=== PATIENT | female | born 1995 ===

== ENCOUNTER 2024-01-21 05:08 | Inpatient (IN) | payer SELFPAY ==
[2024-01-21] MEDS ORDERED: Sodium Chloride 0.9% 2.5 ML Syringe FLUSH PRN (05:15)
[2024-01-21] MEDS ORDERED: Oxytocin/0.9 % Sodium Chloride 30 UNIT/500 ML BAG IV SCH (05:15)
[2024-01-21] MEDS ORDERED: Sodium Chloride 0.9% 10 ML Syringe FLUSH PRN (05:15)
[2024-01-21] MEDS ORDERED: Sodium Chloride 0.9% 20 ML SDV IV PRN (05:15)
[2024-01-21] MEDS: Lactated Ringers 1,000 ML IV SCH (05:44)
[2024-01-21 05:58] LABS: HEMATOCRIT 38.9 % (37.0-47.0); HEMOGLOBIN 13.4 g/dL (12.0-16.0); MEAN CORPUSCULAR HEMOGLOBIN 30.3 pg (28.0-32.0); MEAN CORPUSCULAR HGB CONC 34.4 g/dL (32.0-36.0); PLATELET COUNT,PLT 128 K/uL (150-400); RED BLOOD CELL COUNT 4.42 M/uL (4.10-5.30); WHITE BLOOD CELL COUNT,WBC 9.67 K/uL (3.9-11.3)
[2024-01-21] MEDS ORDERED: Ropivacaine 0.5% 5 MG/ML 30 ML SDV ONE (06:06)
[2024-01-21] MEDS ORDERED: droPERidol 5 MG/2 ML SDV ONE (06:07)
[2024-01-21] MEDS ORDERED: ceFAZolin 2 GM Vial ONE (06:07)
[2024-01-21] MEDS ORDERED: Oxytocin 10 Units/1 ML SDV ONE (06:07)
[2024-01-21] MEDS ORDERED: Tranexamic Acid 1,000 MG/10 ML Vial ONE (06:07)
[2024-01-21] MEDS ORDERED: ePHEDrine 50 MG/ML SDV ONE (06:07)
[2024-01-21] MEDS ORDERED: Dexamethasone 4 MG/ML 5 ML MDV ONE (06:07)
[2024-01-21] MEDS ORDERED: Calcium Chloride 10% 1 GM/10 ML Syringe ONE (06:07)
[2024-01-21] MEDS ORDERED: dexmedeTOMIDine HCl 200 MCG/2 ML SDV ONE (06:07)
[2024-01-21] MEDS ORDERED: Ondansetron 4 MG/2 ML SDV ONE (06:07)
[2024-01-21] MEDS ORDERED: Phenylephrine 1% 10 MG/ML SDV ONE (06:07)
[2024-01-21] MEDS ORDERED: Morphine PF 10 MG/10 ML SDV ONE (06:10)
[2024-01-21] MEDS ORDERED: fentaNYL 100 MCG/2 ML SDV ONE (06:10)
[2024-01-21] MEDS ORDERED: Water For Injection, Sterile 20 ML ONE (06:15)
[2024-01-21] MEDS ORDERED: Morphine 2 MG/ML SYRINGE IVPUSH PRN (07:15)
[2024-01-21] MEDS ORDERED: Ondansetron 4 MG/2 ML SDV IVPUSH PRN ×2 (07:15→08:12)
[2024-01-21] MEDS ORDERED: Metoclopramide 10 MG/2 ML SDV IVPUSH PRN (07:15)
[2024-01-21] MEDS ORDERED: fentaNYL 50 MCG/ML SDV IVPUSH PRN (07:15)
[2024-01-21] MEDS ORDERED: Naloxone 0.4 MG/ML SDV IVPUSH PRN (07:15)
[2024-01-21] MEDS ORDERED: HYDROmorphone 1 MG/ML Syringe IVPUSH PRN (07:15)
[2024-01-21] MEDS ORDERED: Albuterol 0.083% 2.5 MG/3 ML Neb Soln NEB PRN (07:15)
[2024-01-21] MEDS ORDERED: Nalbuphine 10 MG/1 ML Vial IVPUSH PRN (07:15)
[2024-01-21] MEDS ORDERED: Acetaminophen/oxyCODONE 325-5 MG Tab PO PRN ×2 (07:15→08:12)
[2024-01-21] MEDS ORDERED: Phenylephrine HCl In 0.9% NaCl 1 MG/10 ML Syringe IVPUSH PRN (07:15)
[2024-01-21] MEDS ORDERED: fentaNYL 100 MCG/2 ML SDV IVPUSH PRN (07:15)
[2024-01-21] MEDS ORDERED: Bisacodyl 10 MG Supp RECTAL PRN (08:12)
[2024-01-21] MEDS ORDERED: Oxytocin 10 Units/1 ML SDV IM PRN (08:12)
[2024-01-21] MEDS ORDERED: Misoprostol 200 MCG Tab RECTAL PRN (08:12)
[2024-01-21] MEDS ORDERED: Lanolin 100% Cream 7 GM Tube TOP PRN (08:12)
[2024-01-21] MEDS ORDERED: diphenhydrAMINE 50 MG/ML SDV IVPUSH PRN (08:12)
[2024-01-21] MEDS ORDERED: Methylergonovine 0.2 MG/1 ML Amp IM PRN (08:12)
[2024-01-21] MEDS ORDERED: Lactated Ringers 1,000 ML IV SCH (08:15)
[2024-01-21] MEDS: Ondansetron 4 MG/2 ML SDV IVPUSH PRN (08:44)
[2024-01-21] MEDS: Docusate Sodium 100 MG Cap PO SCH (10:40)
[2024-01-21] MEDS: Ketorolac 30 MG/ML SDV IVPUSH SCH (10:40)
[2024-01-21] MEDS: Acetaminophen 1,000 MG in Premix Bag 1 BAG IV SCH (10:40)
[2024-01-21] MEDS: Citric Acid/Sodium Citrate Solution 30 ML Cup PO ONE (11:07)
[2024-01-21] MEDS: ceFAZolin 2 GM in Sodium Chloride 0.9% 50 ML IV ONE (11:07)
[2024-01-21] MEDS: diphenhydrAMINE 50 MG/ML SDV IVPUSH PRN (14:40)
[2024-01-22 06:35] LABS: HEMATOCRIT 34.8 % (37.0-47.0); HEMOGLOBIN 11.5 g/dL (12.0-16.0)
[2024-01-22] MEDS: Ibuprofen 800 MG Tab PO PRN (21:00)
[2024-01-23] MEDS: Acetaminophen/oxyCODONE 325-5 MG Tab PO PRN (04:15)
== END 2024-01-23 14:45 | disposition home or self-care (01) | DRG 788 ==
LOC: MW.OB 05:08 → UNDOADMIN 05:08 → EDSTATUS 13:00 → MW.OB 15:00
PROVIDERS: ADMIT Obstetrics & Gynecology Obstetrics; ATTEND Obstetrics & Gynecology Obstetrics
PROC: 10D00Z1 Extraction of Products of Conception, Low, Open Approach (ICD-10-PCS; principal; 2024-01-21 07:00)
DX: O34.211 Maternal care for low transverse scar from previous cesarean delivery (principal); O99.214 Obesity complicating childbirth; E66.01 Morbid (severe) obesity due to excess calories; Z37.0 Single live birth; Z3A.39 39 weeks gestation of pregnancy
CPT/HCPCS: 01961; 36415; 59025; 64999; 85014; 85018; 85027; 86592; 86850; 86900; 86901; A9270-GY; J0131; J0690; J1100; J1200; J1790; J1885; J2274; J2371; J2405; J2590; J2795; J3010; J3490; J7120